=== PATIENT | female | born 1950 | race Caucasian/White ===

== ENCOUNTER 2021-10-15 11:05 | Day surgery (SDC) | payer MEDICARE, BC, SELFPAY ==
[2021-10-15] MEDS: TETRACAINE 0.5% OPHTH 1 DROP EYE-RIGHT (11:14)
[2021-10-15] MEDS: TETRACAINE 0.5% OPHTH 1 DROP EYE-LEFT (11:14)
[2021-10-15] MEDS: LACTATED RINGERS 1000 ML 1,000 ML 100 ML IV (11:30)
[2021-10-15 11:39] VITALS: BP 126/53; PULSE 42; RESP 14; TEMP 37; O2SAT 100
[2021-10-15 11:40] VITALS: BMI 28.5
[2021-10-15] MEDS: SODIUM CHLORIDE 0.9 % (FLUSH) 10 ML SYRINGE IVF (11:47)
--- NOTE | 2021-10-15 13:40 | PM.PROC ---
Procedure Note Date Seen: 10/15/21 Will [facility] bill your pro fee for this procedure?: Yes Procedure Description: SURGEON: Daphnie Huang MD PREOPERATIVE DIAGNOSIS: Dermatochalasis, bilateral upper eyelids. POSTOPERATIVE DIAGNOSIS: Dermatochalasis, bilateral upper eyelids. NAME OF OPERATION: Bilateral upper eyelid blepharoplasty. ANESTHESIA: Local monitored anesthesia care. ESTIMATED BLOOD LOSS: Less than 2 cc. COMPLICATIONS: None. IMPLANTS: None. INDICATIONS: The patient is seen today for bilateral upper eyelid blepharoplasty. The patient complains of upper eyelids interfering with vision. I reviewed the visual jarrell and facial photographs. Surgery was indicated for functional improvement of vision. The risks, benefits and alternatives were discussed pre-operatively. The risks included pain, infection, bleeding, poor cosmetic result, scarring, asymmetry, need for further treatment including surgery, inability to close lids, dry eyes, decreased vision, loss of vision and loss of eye. The benefits included improvement of symptoms. The alternative was observation and no surgery. All questions were answered to the patient's satisfaction, and the patient elected to proceed with the bilateral upper eyelid blepharoplasty. Informed consent was obtained. PROCEDURE: In a sitting position, the upper eyelid crease was marked with a marking pen, and the pinch technique was used to determine the amount of upper eyelid skin to be excised. A calipers was used to measure for symmetry and to confirm an appropriate amount of remaining skin. The patient was taken to the operating room. 4 cc of anesthetic was injected subcutaneously along the full extent of each upper eyelid. This anesthetic was made with 1:1 of 2% lidocaine with epinephrine and 0.5% bupivacaine. Both eyes were prepped and draped in the usual sterile ophthalmic fashion. The following was performed on both the right and left upper eyelid: A #15 blade was used to incise the skin. Bishops and Kade scissors were used to excise the skin and orbicularis muscle. Handheld cautery was used to achieve hemostasis. The eyelids were examined for symmetry. The skin was closed with a running 6-0 nylon suture. Erythromycin ointment was applied to the wounds. The patient tolerated the procedure well. DISPOSITION: The patient was sent to the recovery room and discharged to home in stable condition. The patient was given my postoperative instructions handout. The patient was told to ice as directed. The patient will apply erythromycin ophthalmic ointment to the eyelids three times a day until the sutures are removed, then for another three days. The patient will follow up in one week for suture removal or sooner as needed. The patient was instructed to call me or go to the emergency department with any sudden change, including dramatic loss of vision, excessive bleeding, redness or discharge from the incisions, or severe pain in the eye. Surgeon: Daphnie Huang MD
[2021-10-15 13:43] VITALS: BP 133/54; PULSE 38; RESP 14; TEMP 36.6; O2SAT 100
--- NOTE | 2021-10-15 13:46 | W.ANESCHARGE ---
Anesthesia Charges Start Date/Time Anesthesia Start Date: 10/15/21 Anesthesia Start Time: 12:28 Stop Date/Time Anesthesia Stop Date: 10/15/21 Anesthesia Stop Time: 13:43 Summary Emergency: No
== END 2021-10-15 14:15 | disposition home or self-care (01) ==
PROVIDERS: PCP Family Medicine; Visit Provider Ophthalmology
PROC: (CPT 15823; principal; 2021-10-15 11:30)
DX: H02.834 Dermatochalasis of left upper eyelid (principal); H02.831 Dermatochalasis of right upper eyelid; H53.8 Other visual disturbances
CPT/HCPCS: 15823; 00103; J2250; J2405; J2704; J3010; J7120

== ENCOUNTER 2022-05-03 20:41 | Emergency (ER) | payer MEDICARE, OTHER, SELFPAY ==
[2022-05-03] VITALS (25 sets, daily range): BP systolic 113–155; BP diastolic 66–115; PULSE 60–155; RESP 20; TEMP 36.7; O2SAT 94–97; BMI 29.3
--- NOTE | 2022-05-03 20:54 | CRLHL7_ITS ---
For Patients: As a result of the Cures Act, medical imaging exams and procedure reports are released immediately into your electronic medical record. You may view this report before your referring provider. If you have questions, please contact your health care provider. HISTORY: Tachycardia. Pacemaker placement. TECHNIQUE: One view of the chest. COMPARISON: 09/19/2019. FINDINGS: There is a 2 lead pacer device with leads terminating within the expected location of the right atrium and right ventricle. There is no pneumothorax. No acute lung infiltrate or pulmonary edema. No pleural effusion. Cardiac size within normal limits. Degenerative changes of the spine. IMPRESSION: No acute cardiopulmonary disease. Dictated by Otoniel Billings MD @ 05/03/2022 9:49:20 PM Dictated by: Otoniel Billings MD @ 05/03/2022 21:49:28 (Electronically Signed)
[2022-05-03] MEDS: 0.9 % SODIUM CHLORIDE 1000 ml 1,000 ML IV (21:00)
[2022-05-03 21:12] LABS: Basophils Absolute Auto 0.03 K/uL (0.00-0.30); Basophils Percent Auto 0.5 % (0.0-3.0); Eosinophils Absolute Auto 0.17 K/uL (0.00-0.50); Eosinophils Percent Auto 2.9 % (0.0-7.0); Hematocrit 43.3 % (33.0-51.0); Hemoglobin* 14.5 gm/dL (12.0-16.0); Immature Granulocytes Abs Auto 0.01 K/uL (0.00-0.30); Immature Granulocytes Pct Auto 0.2 %; Lymphocytes Absolute Auto 1.65 K/uL (0.90-2.90); Lymphocytes Percent Auto 27.7 % (20-44); Mean Corpuscular HGB Conc 34 gm/dL (32-36); Mean Corpuscular Hemoglobin 30 pg (26-34); Mean Corpuscular Volume 89 fL (80-100); Monocytes Percent Auto 9.7 % (0.0-11.0); Neutrophils Absolute Auto 3.51 K/uL (1.7-7.0); Platelet Count* 177 K/uL (140-440); Red Blood Count 4.86 m/uL (4.00-5.20); White Blood Count* 5.95 K/uL (4.50-11.00)
[2022-05-03 21:18] LABS: Troponin, Point-of-Care* 0.04 ng/ml (0.01-0.04)
[2022-05-03 21:28] LABS: Slide Review Reflex No
[2022-05-03 21:35] LABS: Chloride* 104 mmol/L (96-114); Potassium* 3.9 mmol/L (3.6-5.1); Sodium* 137 mmol/L (135-149)
[2022-05-03 21:37] LABS: INR 0.97 (0.91-1.10); Partial Thromboplastin Time* 29 Seconds (23-33); Prothrombin Time 13.5 Seconds
[2022-05-03 21:38] LABS: Blood Urea Nitrogen* 28 mg/dL (7-30); Calcium* 9.3 mg/dL (8.4-10.6); Carbon Dioxide* 25 mmol/L (20-32); Creatinine* 0.7 mg/dL (0.5-1.5); Estimated Glomerular Filt Rate 93 ml/min; Glucose* 153 mg/dL (60-115)
[2022-05-03 21:39] LABS: Magnesium* 2.2 mg/dL (1.5-2.6)
[2022-05-03] MEDS: dilTIAZem 5 MG/ML inj 10 MG IVP (21:41)
--- NOTE | 2022-05-03 21:47 | ED.NURSE ---
2146 pt converted down to 66HR NSR. MD Tellez updated. EKG order
[2022-05-03 21:48] LABS: NT Pro B Type NatriureticPept* 284 pg/mL
--- NOTE | 2022-05-03 21:58 | ED.ARRPALP ---
HPI - Arrhythmia/Palpitations General Date Seen: 05/03/22 Chief Complaint: Arrhythmia/Palpitations Stated Complaint: Erratic pacemaker Time Seen by Provider: 05/03/22 20:53 Source: patient and family Mode of arrival: ambulatory Limitations: no limitations History of Present Illness HPI narrative: Patient is a delightful 72-year-old female who presents here for evaluation of rapid heart rate, this came on approximately an hour hour and a half ago, while she was at home, she just got home from [facility] on the where she had the dual chamber pacemaker implantation done. Did well in the postoperative period, but had resumption of her rapid heart rate which I believe is SVT as noted in the past. She was here in 2019 and had did adenosine 6 mg given, which converted her at that point. She denies any chest pain, shortness of breath, fevers chills or sweats, and says the wound on her left side of her chest is markedly improved since when she left the hospital. He just feels that she has a rapid heart rate, and would like this not to occur. She spoke to Dr.Katsianynins marvin hutchins, he sent her to the hospital, he has a amusement park ride mechanic with the EP department at [facility]. complaint: rapid heart beat, heart racing and palpitations Onset (ago): hour(s) Duration: constant Severity: moderate Context: occurred during rest Arrhythmia history: SVT and pacemaker Associated symptoms: denies other symptoms Related Data Home Medications Medication Instructions Recorded Confirmed atorvastatin 10 mg tablet 10 mg PO HS 10/10/21 05/03/22 calcium carbonate 500 mg calcium 1,000 mg PO DAILY 10/10/21 05/03/22 (1,250 mg) tablet (Oyster Shell Calcium) lisinopril 10 mg tablet 10 mg PO DAILY 05/03/22 05/03/22 Previous Rx's Medication Instructions Recorded diltiazem HCl 120 mg capsule,24 120 mg PO DAILY #30 caps 05/03/22 hr,extended release Allergies Allergy/AdvReac Type Severity Reaction Status Date / Time No Known Allergies Allergy Unknown Verified 05/03/22 21:11 Review of Systems Status of ROS: Reports: 10 or more systems reviewed and unremarkable except as noted in History and below [facility] Medical History (Updated 05/03/22 @ 23:36 by Guru Tellez MD) Bradycardia, sinus ?R00.1 - Bradycardia, unspecified (ICD-10) Encounter for counseling regarding advance directives (03/29/13) ?Z71.89 - Other specified counseling (ICD-10) GERD (gastroesophageal reflux disease) ?K21.9 - Gastro-esophageal reflux disease without esophagitis (ICD-10) Hyperlipidemia, unspecified ?E78.5 - Hyperlipidemia, unspecified (ICD-10) Impaired fasting glucose ?R73.01 - Impaired fasting glucose (ICD-10) Osteoarthritis, lower leg, localized ?M17.10 - Unilateral primary osteoarthritis, unspecified knee (ICD-10) Osteopenia ?M85.80 - Other specified disorders of bone density and structure, unspecified site (ICD-10) Other atopic dermatitis and related conditions ?L20.89 - Other atopic dermatitis (ICD-10) Postmenopausal ?Z78.0 - Asymptomatic menopausal state (ICD-10) Supraventricular tachycardia ?I47.1 - Supraventricular tachycardia (ICD-10) Surgical History (Updated 10/10/21 @ 11:19 by Amina Borges RN) History of bilateral knee arthroplasty ?Z96.653 - Presence of artificial knee joint, bilateral (ICD-10) Hx of colonoscopy ?Z98.890 - Other specified postprocedural states (ICD-10) Hx of tonsillectomy ?Z90.89 - Acquired absence of other organs (ICD-10) Hx of tubal ligation ?Z98.51 - Tubal ligation status (ICD-10) Social History Smoking Status: Never smoker Do you use any of these nicotine containing products: None How often do you have a drink containing alcohol: never AUDIT-C Alcohol total score: 0 Non-prescribed substance use: denies use Exam Narrative: Exam Narrative: She is in no apparent distress in room 3, pupils are equal round reactive to light there is no scleral icterus redness TMs are normal oropharynx is normal, chest is clear bilaterally heart sounds no clicks murmurs or gallops her wound is healing up on the left upper part of her chest with just a slight bit of bruising but no seroma formation. Abdomen is soft there is no guarding no tenderness, bowel sounds are normal, skin reveals no petechiae rashes she moves all extremities independently and well. She is clearly in an SVT on the monitor appears to be regular. Const: Vital Signs, click to edit/add: Vital Signs - 24 hr 05/03/22 21:08 05/03/22 21:03 05/03/22 21:11 Temperature 98.0 F Pulse Rate 147 H 126 H Pulse Rate [Right Pulse Oximeter] 155 H Respiratory Rate 20 Blood Pressure 135/94 H Blood Pressure [Le ft Upper Arm] 145/98 H Pulse Oximetry 95 96 95 Oxygen Delivery Me thod Room Air 05/03/22 21:15 05/03/22 21:16 05/03/22 21:30 Temperature Pulse Rate 117 H 121 H 142 H Pulse Rate [Right Pulse Oximeter] Respiratory Rate Blood Pressure 132/90 H Blood Pressure [Le ft Upper Arm] Pulse Oximetry 95 95 97 Oxygen Delivery Me thod 05/03/22 21:31 05/03/22 21:45 05/03/22 21:47 Temperature Pulse Rate 144 H 63 66 Pulse Rate [Right Pulse Oximeter] Respiratory Rate Blood Pressure 137/92 H 124/66 Blood Pressure [Le ft Upper Arm] Pulse Oximetry 96 95 94 Oxygen Delivery Me thod 05/03/22 22:01 05/03/22 22:03 05/03/22 22:15 Temperature Pulse Rate 78 70 64 Pulse Rate [Right Pulse Oximeter] Respiratory Rate Blood Pressure 139/71 Blood Pressure [Le ft Upper Arm] Pulse Oximetry 97 96 95 Oxygen Delivery Me thod 05/03/22 22:17 05/03/22 22:30 05/03/22 22:32 Temperature Pulse Rate 66 69 65 Pulse Rate [Right Pulse Oximeter] Respiratory Rate Blood Pressure 132/115 H 113/78 Blood Pressure [Le ft Upper Arm] Pulse Oximetry 95 94 95 Oxygen Delivery Me thod 05/03/22 22:45 05/03/22 22:49 05/03/22 23:00 Temperature Pulse Rate 63 64 69 Pulse Rate [Right Pulse Oximeter] Respiratory Rate Blood Pressure 121/94 H Blood Pressure [Le ft Upper Arm] Pulse Oximetry 95 96 97 Oxygen Delivery Me thod 05/03/22 23:01 05/03/22 23:15 05/03/22 23:17 Temperature Pulse Rate 67 64 60 Pulse Rate [Right Pulse Oximeter] Respiratory Rate Blood Pressure 137/82 155/76 H Blood Pressure [Le ft Upper Arm] Pulse Oximetry 96 95 95 Oxygen Delivery Me thod 05/03/22 23:30 05/03/22 23:32 05/03/22 23:45 Temperature Pulse Rate 64 60 60 Pulse Rate [Right Pulse Oximeter] Respiratory Rate Blood Pressure 155/87 H Blood Pressure [Le ft Upper Arm] Pulse Oximetry 97 96 96 Oxygen Delivery Me thod 05/03/22 23:47 Temperature Pulse Rate 60 Pulse Rate [Right Pulse Oximeter] Respiratory Rate Blood Pressure 148/83 H Blood Pressure [Le ft Upper Arm] Pulse Oximetry 97 Oxygen Delivery Me thod Documenting provider has reviewed patient's vital signs: yes Course Course Hospital Course: Spoke to Dr. Car from [facility] electrophysiology, I explained to him that she converted with diltiazem 10 mg, he would like her on long acting diltiazem 120 mg, and then follow-up with the Cardiology. I explained this to the patient, her troponins came back good, her delta was reasonable. Repeat troponin shows the conversion. To normal sinus rhythm with the occasional paced rhythm, She was asymptomatic. At this point I think we can discharge her Vital Signs Vital signs: Initial Vital Signs Pulse Rate 147 H 05/03/22 21:03 Pulse Oximetry 96 05/03/22 21:03 Vital Signs Pulse Rate 147 H 05/03/22 21:03 Pulse Oximetry 96 05/03/22 21:03 Temperature 98.0 F 05/03/22 21:08 Pulse Rate 60 05/03/22 23:47 Respiratory Rate 20 05/03/22 21:08 Blood Pressure 148/83 H 05/03/22 23:47 Pulse Oximetry 97 05/03/22 23:47 Oxygen Delivery Method Room Air 05/03/22 21:08 MDM - Arrhythmia/Palpitations MDM Narrative Medical decision making narrative: Differential diagnosis includes but is not limited to psychosocial stress, thyroid abnormalities, CHF, SVT, atrial fibrillation, ventricular tachycardia and ventricular fibrillation. This includes the life-threatening complications of heart failure, V-tach, and VFib Medical Records Attestation: I reviewed the patient's medical records. Medical records narrative: I was able to review the records from [facility] on this lady from her recent admission to the [facility]. Lab Data Attestation: I reviewed the patient's lab results. Labs: Lab Results 05/03/22 05/03/22 Range/Units 21:05 22:39 WBC 5.95 (4.50-11.00) K/uL RBC 4.86 (4.00-5.20) m/uL Hgb 14.5 (12.0-16.0) gm/dL Hct 43.3 (33.0-51.0) % MCV 89 (80-100) fL MCH 30 (26-34) pg MCHC 34 (32-36) gm/dL RDW Coeff of Abril 13.0 (11.5-15.5) % Plt Count 177 (140-440) K/uL Neut % (Auto) 59.0 (42.0-72.0) % Lymph % (Auto) 27.7 (20-44) % [place] % (Auto) 9.7 (0.0-11.0) % Eos % (Auto) 2.9 (0.0-7.0) % Baso % (Auto) 0.5 (0.0-3.0) % Neut # (Auto) 3.51 (1.7-7.0) K/uL Lymph # (Auto) 1.65 (0.90-2.90) K/uL [place] # (Auto) 0.60 (0.00-0.90) K/UL Eos # (Auto) 0.17 (0.00-0.50) K/uL Baso # (Auto) 0.03 (0.00-0.30) K/uL INR 0.97 (0.91-1.10) APTT 29 (23-33) Seconds D-Dimer Quant (PE/DVT) 0.80 H (0.00-0.50) ug/ml Sodium 137 (135-149) mmol/L Potassium 3.9 (3.6-5.1) mmol/L Chloride 104 (96-114) mmol/L Carbon Dioxide 25 (20-32) mmol/L BUN 28 (7-30) mg/dL Creatinine 0.7 (0.5-1.5) mg/dL Estimated Creat Clear 41.40 Estimated GFR 93 ml/min Glucose 153 H (60-115) mg/dL Calcium 9.3 (8.4-10.6) mg/dL Magnesium 2.2 (1.5-2.6) mg/dL NT-Pro-B Natriuret Pep 284 pg/mL TSH 4.000 (0.270-4.20) uIU/mL SARS-CoV-2 (PCR) Negative SARS-CoV-2 (Negative) Influenza Type A (PCR) Negative PCR FLU A (Negative) Influenza Type B (PCR) Negative PCR FLU B (Negative) RSV (PCR) Negative PCR RSV (Negative) POC Troponin I 0.04 0.05 H (0.01-0.04) ng/ml Imaging Data Chest x-ray: Attestation: I have reviewed the pertinent imaging results. My impression: Nothing acute Radiologist's impression: Patient: NI FRENCH Facility: [facility] . Site : 1950 Study: XRay Chest PORTABLE-05/03/2022 9:41:20 PM Ordering Physician: Rosalinda Garvey Final Report: HISTORY: Tachycardia. Pacemaker placement. TECHNIQUE: One view of the chest. COMPARISON: 09/19/2019. FINDINGS: There is a 2 lead pacer device with leads terminating within the expected location of the right atrium and right ventricle. There is no pneumothorax. No acute lung infiltrate or pulmonary edema. No pleural effusion. Cardiac size within normal limits. Degenerative changes of the spine. IMPRESSION: No acute cardiopulmonary disease. Dictated by Otoniel Billings MD @ 05/03/2022 9:49:20 PM Dictated by: Otoniel Billings MD @ 05/03/2022 21:49:28 (Electronic Signature) ECG Data Attestation: I personally reviewed and interpreted this ECG as follows: ECG interpretation date: 05/03/22 Prior ECG tracings: available for review Interpretation: Supraventricular tachycardia, there is some ST wave flattening, notable. Ventricular rate is 147 Discharge Plan Discharge Clinical Impression: Paroxysmal supraventricular tachycardia Patient Disposition: Home w/ Parent or Adult Condition: Improved Instructions: Supraventricular Tachycardia (ED) Additional Instructions: Home rest follow-up with Cardiology and Primary Care, taking medication as directed, prescription sent to her pharmacy. Return if worrisome signs and symptoms Prescriptions: New diltiazem HCl 120 mg capsule,extended release 24 hr 120 mg PO DAILY Qty: 30 2RF No Action atorvastatin 10 mg tablet 10 mg PO HS calcium carbonate [Oyster Shell Calcium] 500 mg calcium (1,250 mg) tablet 1,000 mg PO DAILY lisinopril 10 mg tablet 10 mg PO DAILY Follow Up/Referrals: Cata Bertrand DO [Primary Care Provider] - Stand Alone Forms: 1bibealth Info Instructions
[2022-05-03 22:21] LABS: PCR FLU A Negative PCR FLU A (Negative); PCR FLU B Negative PCR FLU B (Negative); PCR RSV Negative PCR RSV (Negative); SARS PCR* Negative SARS-CoV-2 (Negative)
[2022-05-03] MEDS: dilTIAZem 120 MG CAP.ER.24H PO (22:49)
[2022-05-03 22:59] LABS: Troponin, Point-of-Care* 0.05 ng/ml (0.01-0.04)
== END 2022-05-04 | disposition home or self-care (01) ==
PROVIDERS: Emergency Provider Family Medicine; PCP Family Medicine
DX: I47.1 Supraventricular tachycardia (principal)
CPT/HCPCS: 36415; 71045; 80048; 83735; 83880; 84443; 84484; 85025; 85379; 85610; 85730; 87502; 87634; 87635; 93005; 99285; A9270; J7030

== ENCOUNTER 2022-10-27 21:08 | Emergency (ER) | payer MEDICARE, OTHER, SELFPAY ==
[2022-10-27] VITALS (14 sets, daily range): BP systolic 99–113; BP diastolic 59–84; PULSE 57–161; RESP 20; TEMP 37.1; O2SAT 96–99; BMI 30.2
--- NOTE | 2022-10-27 21:50 | ED_ITS ---
HPI - Arrhythmia/Palpitations General Time Seen by Provider: 21:50 Date Seen: 10/27/22 Chief Complaint: Arrhythmia/Palpitations Stated Complaint: High heart rate Time Seen by Provider: 10/27/22 21:49 Source: patient and RN notes reviewed Mode of arrival: ambulatory Limitations: no limitations History of Present Illness HPI narrative: Patient started to notice her rapid heart rate at about 2:00 p.m. today. Has a history of SVT. She does have a dual-chamber pacemaker that was placed at [place] earlier this year for bradycardia. She was here in April of 2022, was in SVT, did convert with 10 mg IV Cardizem. She did get started on oral long- acting Cardizem which she has been taking. She is having no chest pain with this, no shortness of breath. She has not been sick with anything, no cough or cold symptoms. She is not aware of any triggers for SVT, states she has no reason or idea why she keeps going into this. Related Data Home Medications Medication Instructions Recorded Confirmed atorvastatin 10 mg tablet 10 mg PO HS 10/10/21 10/27/22 calcium carbonate 500 mg calcium 1,000 mg PO DAILY 10/10/21 10/27/22 (1,250 mg) tablet (Oyster Shell Calcium) Previous Rx's Medication Instructions Recorded diltiazem HCl 120 mg capsule,24 120 mg PO DAILY #30 caps 05/03/22 hr,extended release Allergies Allergy/AdvReac Type Severity Reaction Status Date / Time No Known Allergies Allergy Unknown Verified 10/27/22 21:25 Review of Systems Status of ROS: Reports: 6 or more systems reviewed and unremarkable except as noted in History and below [facility] Medical History Supraventricular tachycardia ?I47.1 - Supraventricular tachycardia (ICD-10) Bradycardia, sinus ?R00.1 - Bradycardia, unspecified (ICD-10) Postmenopausal ?Z78.0 - Asymptomatic menopausal state (ICD-10) Osteopenia ?M85.80 - Other specified disorders of bone density and structure, unspecified site (ICD-10) Hyperlipidemia, unspecified ?E78.5 - Hyperlipidemia, unspecified (ICD-10) Osteoarthritis, lower leg, localized ?M17.10 - Unilateral primary osteoarthritis, unspecified knee (ICD-10) Other atopic dermatitis and related conditions ?L20.89 - Other atopic dermatitis (ICD-10) Impaired fasting glucose ?R73.01 - Impaired fasting glucose (ICD-10) GERD (gastroesophageal reflux disease) ?K21.9 - Gastro-esophageal reflux disease without esophagitis (ICD-10) Encounter for counseling regarding advance directives (03/29/13) ?Z71.89 - Other specified counseling (ICD-10) Surgical History Hx of tubal ligation ?Z98.51 - Tubal ligation status (ICD-10) Hx of tonsillectomy ?Z90.89 - Acquired absence of other organs (ICD-10) History of bilateral knee arthroplasty ?Z96.653 - Presence of artificial knee joint, bilateral (ICD-10) Hx of colonoscopy ?Z98.890 - Other specified postprocedural states (ICD-10) Social History Smoking Status: Never smoker Do you use any of these nicotine containing products: None How often do you have a drink containing alcohol: never AUDIT-C Alcohol total score: 0 Non-prescribed substance use: denies use Exam Const: Vital Signs, click to edit/add: Vital Signs - 24 hr 10/27/22 21:22 10/27/22 21:28 10/27/22 21:40 Temperature 98.7 F Pulse Rate 157 H Pulse Rate [Pulse Oximeter] 161 H Respiratory Rate 20 Blood Pressure 102/84 Blood Pressure [Ri ght Upper Arm] 99/63 Pulse Oximetry 99 97 Oxygen Delivery Me thod Room Air 10/27/22 21:41 10/27/22 21:45 10/27/22 22:00 Temperature Pulse Rate 157 H 159 H 157 H Pulse Rate [Pulse Oximeter] Respiratory Rate Blood Pressure Blood Pressure [Ri ght Upper Arm] Pulse Oximetry 99 97 97 Oxygen Delivery Me thod 10/27/22 22:02 10/27/22 22:11 10/27/22 22:15 Temperature Pulse Rate 155 H 65 153 H Pulse Rate [Pulse Oximeter] Respiratory Rate Blood Pressure 112/80 113/63 Blood Pressure [Ri ght Upper Arm] Pulse Oximetry 98 99 99 Oxygen Delivery Me thod 10/27/22 22:16 10/27/22 22:26 10/27/22 22:30 Temperature Pulse Rate 151 H 57 L 60 Pulse Rate [Pulse Oximeter] Respiratory Rate Blood Pressure 104/75 107/78 Blood Pressure [Ri ght Upper Arm] Pulse Oximetry 98 97 97 Oxygen Delivery Me thod 10/27/22 22:32 10/27/22 22:33 Temperature Pulse Rate 60 60 Pulse Rate [Pulse Oximeter] Respiratory Rate Blood Pressure 104/59 L Blood Pressure [Ri ght Upper Arm] Pulse Oximetry 96 96 Oxygen Delivery Ma thod 9-year-old female that is alert interact jazmyn no apparent distress. Sclera clear, conjugate gaze. Able speak in complete sentences. Neck is supple, no jugular venous distension. Lungs are clear without wheezing crackles. CV is fast but regular, I do not hear murmur at this time. Abdomen obese but soft number rebound or guarding. Moving all extremities. Symmetrical facial function. Documenting provider has reviewed patient's vital signs: yes Course Course ED Course: Patient is in SVT, will get IV access, have her on cardiac monitoring and pulse oximetry. Establish L of normal saline and get labs. She has no evidence of any CHF on exam. Will try adenosine 6 mg IV. Have looked in her records and if adenosine does not work, will consider the Cardizem IV. Reevaluation(s) Time of Reevaluation #1: 22:10 Reevaluation #1: Patient was given 6 mg IV adenosine in my presence. She had appropriate pause, looks like her pacemaker possibly went into affect as there were some regular wide complex QRS seen on the monitor, then appeared to go into sinus rhythm. Will be getting updated EKG. Time of Reevaluation #2: 22:15 Reevaluation #2: Patient is back in SVT already, will do 10 mg IV Cardizem as I see that worked for her at her last time in our ER. EKG timed 10:13 p.m. showing tachycardia, 152 beats per minute. Some nonspecific ST segment changes. Note patient does not have chest symptoms with this. Quickly cardioverted with the Cardizem 10 mg IV. EKG showing sinus rhythm, 65 beats per minute, normal EKG, some initial artifact and do see PAC. QT corrected 3 and 76 milliseconds. Time of Reevaluation #3: 23:47 Reevaluation #3: Patient remains in sinus rhythm, her pacemaker did activate. Nursing staff no jay to change on the awake overnight monitor with peaked T-waves. They did repeat an EKG and this is her pacemaker at 60 beats per minute. She is asymptomatic. She reports that she used to be on blood pressure medicine, when she went to the clinic last time her blood pressure was low in her doctor just left her on the Cardizem and took away the other blood pressure medicines. We discussed follow up in clinic to see if her pressure might support the increased to the 180. At this time, blood pressures lower but she received IV Cardizem. I have reviewed with her that I am not able to make the distinction whether not she will be able to tolerate increased oral Cardizem. She is going to need to follow up outpatient. Consultations Consultation #1: Reviewed with cardiology on-call at [facility]. He agreed with increasing her Cardizem to 180 mg for suppression if her blood pressure will allow. Will continue to monitor her here and await her labs but likely discharge to home. Time: 22:16 Vital Signs Vital signs: Initial Vital Signs Temperature 98.7 F 10/27/22 21:22 Temperature Source Temporal Artery Scan 10/27/22 21:22 Pulse Rate 161 H 10/27/22 21:22 Pulse Rhythm Irregular 10/27/22 21:22 Pulse Strength 3+ Normal 10/27/22 21:22 Blood Pressure 99/63 10/27/22 21:22 Blood Pressure Mean 75 10/27/22 21:22 Pulse Oximetry 99 10/27/22 21:22 Oxygen Delivery Method Room Air 10/27/22 21:22 Vital Signs Temperature 98.7 F 10/27/22 21:22 Pulse Rate 161 H 10/27/22 21:22 Blood Pressure 99/63 10/27/22 21:22 Pulse Oximetry 99 10/27/22 21:22 Oxygen Delivery Method Room Air 10/27/22 21:22 Temperature 98.7 F 10/27/22 21:22 Pulse Rate 60 10/27/22 22:33 Respiratory Rate 20 10/27/22 21:28 Blood Pressure 104/59 L 10/27/22 22:32 Pulse Oximetry 96 10/27/22 22:33 Oxygen Delivery Method Room Air 10/27/22 21:22 MDM - Arrhythmia/Palpitations Lab Data Attestation: I reviewed the patient's lab results. Labs: Lab Results 10/27/22 10/27/22 Range/Units 21:53 22:00 WBC 6.89 (4.50-11.00) K/uL RBC 5.10 (4.00-5.20) m/uL Hgb 15.3 (12.0-16.0) gm/dL Hct 44.7 (33.0-51.0) % MCV 88 (80-100) fL MCH 30 (26-34) pg MCHC 34 (32-36) gm/dL RDW Coeff of Abril 12.8 (11.5-15.5) % Plt Count 195 (140-440) K/uL Neut % (Auto) 64.1 (42.0-72.0) % Lymph % (Auto) 25.5 (20-44) % [place] % (Auto) 8.0 (0.0-11.0) % Eos % (Auto) 1.7 (0.0-7.0) % Baso % (Auto) 0.6 (0.0-3.0) % Neut # (Auto) 4.41 (1.7-7.0) K/uL Lymph # (Auto) 1.76 (0.90-2.90) K/uL [place] # (Auto) 0.60 (0.00-0.90) K/UL Eos # (Auto) 0.12 (0.00-0.50) K/uL Baso # (Auto) 0.04 (0.00-0.30) K/uL Abs Immat Gran (auto) 0.01 (0.00-0.30) K/uL Imm/Tot Granulo (auto) 0.1 % Sodium 136 (135-149) mmol/L Potassium 4.0 (3.6-5.1) mmol/L Chloride 104 (96-114) mmol/L Carbon Dioxide 22 (20-32) mmol/L Anion Gap 10 (7-15) mEq/L BUN 20 (7-30) mg/dL Creatinine 0.8 (0.5-1.5) mg/dL Estimated Creat Clear 41.40 Estimated GFR 79 ml/min Glucose 106 (60-115) mg/dL Calcium 9.7 (8.4-10.6) mg/dL Magnesium 2.2 (1.5-2.6) mg/dL POC Troponin I 0.02 (0.01-0.04) ng/ml ECG Data Attestation: I personally reviewed and interpreted this ECG as follows: (SVT, 161 beats per minute, some S T changes inferiorly.) ECG interpretation date: 10/27/22 ECG interpretation time: 22:01 Critical Care Time Critical Care Time Critical Care Time: No Discharge Plan Discharge Clinical Impression: Paroxysmal supraventricular tachycardia Patient Disposition: Home, Self-Care Condition: Stable Instructions: Supraventricular Tachycardia (ED) Additional Instructions: Recommend recheck in clinic. If your blood pressure will tolerate it, cardiology recommends increasing your Cardizem to 180 mg daily from the 120 mg. I do need you seen in clinic this week to re-evaluate this. In the meantime, stay in the 120 mg, return if you have further sustained episodes of the SVT. Activity Level: Activity as Tolerated Prescriptions: No Action atorvastatin 10 mg tablet 10 mg PO HS calcium carbonate [Oyster Shell Calcium] 500 mg calcium (1,250 mg) tablet 1,000 mg PO DAILY diltiazem HCl 120 mg capsule,extended release 24 hr 120 mg PO DAILY Qty: 30 2RF Follow Up/Referrals: Cata Bertrand DO [Primary Care Provider] - Stand Alone Forms: My[facility] Info Instructions
[2022-10-27] MEDS: 0.9 % SODIUM CHLORIDE 1000 ml 1,000 ML 500 ML IV (22:00)
[2022-10-27 22:03] LABS: Basophils Absolute Auto 0.04 K/uL (0.00-0.30); Basophils Percent Auto 0.6 % (0.0-3.0); Eosinophils Absolute Auto 0.12 K/uL (0.00-0.50); Eosinophils Percent Auto 1.7 % (0.0-7.0); Hematocrit 44.7 % (33.0-51.0); Hemoglobin* 15.3 gm/dL (12.0-16.0); Immature Granulocytes Abs Auto 0.01 K/uL (0.00-0.30); Immature Granulocytes Pct Auto 0.1 %; Lymphocytes Absolute Auto 1.76 K/uL (0.90-2.90); Lymphocytes Percent Auto 25.5 % (20-44); Mean Corpuscular HGB Conc 34 gm/dL (32-36); Mean Corpuscular Hemoglobin 30 pg (26-34); Mean Corpuscular Volume 88 fL (80-100); Neutrophils Absolute Auto 4.41 K/uL (1.7-7.0); Neutrophils Percent Auto 64.1 % (42.0-72.0); Platelet Count* 195 K/uL (140-440); RDW Coefficient of Variation % 12.8 % (11.5-15.5); White Blood Count* 6.89 K/uL (4.50-11.00)
[2022-10-27 22:05] LABS: Slide Review Reflex No
[2022-10-27] MEDS: ADENOSINE 6 MG/2ML INJ IVP (22:08)
[2022-10-27 22:15] LABS: Chloride* 104 mmol/L (96-114); Sodium* 136 mmol/L (135-149)
[2022-10-27 22:18] LABS: Anion Gap 10 mEq/L (7-15); Blood Urea Nitrogen* 20 mg/dL (7-30); Carbon Dioxide* 22 mmol/L (20-32); Creatinine* 0.8 mg/dL (0.5-1.5); Estimated Glomerular Filt Rate 79 ml/min; Glucose* 106 mg/dL (60-115)
[2022-10-27 22:19] LABS: Calcium* 9.7 mg/dL (8.4-10.6); Magnesium* 2.2 mg/dL (1.5-2.6)
[2022-10-27] MEDS: dilTIAZem 5 MG/ML inj 10 MG IVP (22:21)
[2022-10-27 22:38] LABS: Troponin, Point-of-Care* 0.02 ng/ml (0.01-0.04)
--- NOTE | 2022-10-27 22:50 | ED.NURSE ---
Pt present with tachycardiac rhythm 12 lead complete (see scanned documents). Asymptomatic at presentation and throughout event. Medication (s) administered- See MAR. Provider at bedside. Room air. BP stable. Rhythm currently going between being paced and sinus rhythm.
[2022-10-28] VITALS: BP 105/71; PULSE 62; RESP 20; TEMP 37.1
== END 2022-10-28 | disposition home or self-care (01) ==
PROVIDERS: Emergency Provider Family Medicine; PCP Family Medicine
DX: I47.1 Supraventricular tachycardia (principal)
CPT/HCPCS: 36415; 80048; 83735; 84484; 85025; 93005; 94761; 96361; 96374; 96375; 99284; 99291; J0153; J7030